=== PATIENT | male | born 1940 | race Caucasian/White ===

== ENCOUNTER → 2016-11-25 | Outpatient (CLI) | payer OTHER ==
[~2016-11-25] MED LIST: CENTRUM SILVER1 EAC2 PO; DILANTIN 100 M100 MG PO; FLOMAX0.4 MG PO; GLUCOSAMINE CH1 EAC2 PO; NORCO 10-325 T1 EACH PO; PROCARDIA XL90 MG PO; ZOCOR 10 MG TAB10 MG PO
--- NOTE | ~2016-11-25 | EKG ---
[address] [place] [address] ELECTROCARDIOGRAM REPORT Name: VALDEMAR COOLEY Room #: [facility] FOR BOYSKiesha#: [id number] Admission: 11/25/16 Attend Phys: Yanet Locke MD Discharge: Date of : 42 Report #: [id number] THIS REPORT FOR: //name// [facility] Test Date: 2016-11-25 Test Time: 11:39:07 Pat Name: VALDEMAR COOLEY Department: Room: Gender: Human Resources Training Manager: MOSES : 1940 Requested By: Yanet Locke Order Number: [id number] MD: Endy Lott Measurements Intervals [place] Rate: 67 P: 49 WI: 175 QRS: 74 QRSD: 103 T: 61 QT: 388 QTc: 410 Interpretive Statements Sinus rhythm Borderline T wave abnormalities Baseline wander in lead(s) V5 Compared to ECG 05/14/2015 10:17:58 No significant change was found Electronically Signed On 11-26-2016 9:50:24 CDT by Endy Lott [email or web address] <ELECTRONICALLY SIGNED> By: Endy Lott MD, [facility] 11/26/16 [id number] [id number] Endy Lott MD, [facility] /EPI
== END ==
LOC: CV 11:24
DX: Z01.818 Encounter for other preprocedural examination (principal)